=== PATIENT | female | born 1955 | race African-American/Black ===

== ENCOUNTER → 2017-06-10 | Outpatient (CLI) | payer MEDICAID | END | disposition home or self-care (01) | LOC: CFH 08:39 | PROVIDERS: ATTEND Specialist | DX: D70.9 Neutropenia, unspecified (principal) | CPT/HCPCS: 76700 ==

== ENCOUNTER → 2018-10-15 | Outpatient (CLI) | payer MEDICAID | END | disposition home or self-care (01) | LOC: CFH 10:56 | PROVIDERS: ATTEND Family Medicine | DX: Z12.31 Encounter for screening mammogram for malignant neoplasm of breast (principal) | CPT/HCPCS: 77067 ==

== ENCOUNTER 2019-09-28 08:24 | Day surgery (SDC) | payer MEDICAID ==
[~2019-09-28] VITALS: Ht 147.3 cm; Wt 56.4 kg
[2019-09-28] MEDS ORDERED: methylPREDNISolone*ACETATE* 80 MG/ML ONE (08:47)
[2019-09-28] MEDS ORDERED: BUPIVACAINE/PF 0.5% ONE (08:47)
[2019-09-28] MEDS ORDERED: EPINEPHRINE 1 MG/ML, 1ML ONE (08:48)
[2019-09-28] MEDS ORDERED: ROPIvacaine/PF 0.5%, 30 ML ONE (08:48)
[2019-09-28] MEDS ORDERED: LACTATED RINGERS 1,000 ML IV SCH (09:11)
[2019-09-28 09:12] VITALS: BP 156/82
[2019-09-28] MEDS ORDERED: RIVA10TA2 PO (09:28)
[2019-09-28] MEDS ORDERED: OXYC10TA6 PO (09:28)
[2019-09-28] MEDS ORDERED: OXYC-295 PO (09:28)
[2019-09-28] MEDS ORDERED: PLEASE ENTER HEIGHT AND WEIGHT MC SCH (09:30)
[2019-09-28] MEDS ORDERED: PROPOFOL 10 MG/ML, 20ML ONE (10:48)
[2019-09-28] MEDS ORDERED: MIDAZOLAM 1 MG/ML, 2ML ONE (10:51)
[2019-09-28] MEDS ORDERED: FENTANYL PF 100 MCG/2ML ONE ×2 (10:59→11:17)
[2019-09-28] MEDS ORDERED: OXYcodone 5 MG/5 ML ORAL.SOL UDC ONE (11:17)
[2019-09-28] MEDS: FENTANYL PF 100 MCG/2ML IV PRN ×2 (11:20→11:45)
[2019-09-28] MEDS ORDERED: OXYcodone 5 MG/5 ML ORAL.SOL UDC PO PRN (11:30)
[2019-09-28] MEDS ORDERED: ONDANSETRON 2MG/ML, 2ML IV PRN (11:30)
== END 2019-09-28 13:25 | disposition home or self-care (01) ==
LOC: OUT 08:24
PROVIDERS: ATTEND Orthopaedic Surgery Adult Reconstructive Orthopaedic Surgery
DX: T84.82XA Fibrosis due to internal orthopedic prosthetic devices, implants and grafts, initial encounter (principal); Z79.82 Long term (current) use of aspirin; Z79.891 Long term (current) use of opiate analgesic; Z88.8 Allergy status to other drugs, medicaments and biological substances; Z96.652 Presence of left artificial knee joint; Y83.8 Other surgical procedures as the cause of abnormal reaction of the patient, or of later complication, without mention of misadventure at the time of the procedure
CPT/HCPCS: 27570; 64447; 93005; J2250; J2704; J3010; J0171; J2795; J1040